=== PATIENT | female | born 1945 | race Caucasian/White ===

== ENCOUNTER → 2017-01-15 | Outpatient (CLI) | payer MEDICARE, BC, OTHER ==
[~2017-01-15] MED LIST: ASPIRIN E.C. 8181 MG PO; CLONAZEPAM0.125 MG PO; CLONAZEPAM1 MG PO; EXELON PAT4.6 MG/24 TD; EXELON4.5 MG TD; FLORINEF ACETA0.1 MG PO; LEVOTHYROXIN0.025 MG PO; LEXAPRO20 MG PO; MULTI VITAMINS1 TAB PO; NAPROXEN220 MG PO; POTASSIMIN75 MG PO; PRAVACHOL 40MG40 MG PO; Q10; SEROQUEL25 MG PO; SINEMET CR 50 M1 TER PO
== END ==
LOC: BHSO 11:19
DX: F33.1 Major depressive disorder, recurrent, moderate (principal)

== ENCOUNTER → 2017-04-16 | Outpatient (CLI) | payer MEDICARE, BC, OTHER | LOC: BHSO 11:23 | DX: F31.73 Bipolar disorder, in partial remission, most recent episode manic (principal) ==

== ENCOUNTER → 2017-08-20 | Outpatient (CLI) | payer MEDICARE, BC, OTHER | LOC: BHSO 11:18 | DX: F41.1 Generalized anxiety disorder (principal) ==

== ENCOUNTER 2017-12-31 16:52 | Observation (INO) | payer MEDICARE, BC ==
[~2017-12-31] VITALS: Ht 167.6 cm; Wt 63.8 kg
[~2017-12-31 16:52] MED LIST changes: +ALEVE 220MG220 MG PO; -NAPROXEN220 MG PO; -Q10; +Q10 PO; -SEROQUEL25 MG PO; +SEROQUEL50 MG PO
[2017-12-31 17:54] VITALS: BP 159/81; PULSE 69; TEMP 98.3
[2017-12-31] MEDS ORDERED: EXELON4.5 MG PO (18:03)
[2017-12-31] MEDS ORDERED: BRINTELLIX5 PO (18:22)
[2017-12-31 21:01] VITALS: BP 156/102; PULSE 90; TEMP 97.3
[2017-12-31 23:59] VITALS: BP 107/89; PULSE 63; TEMP 97.6
[2018-01-01] VITALS (10 sets, daily range): BP systolic 148–197; BP diastolic 76–110; PULSE 62–100; TEMP 97.5–97.9
[2018-01-01] MEDS ORDERED: SINEMET 25/101 UDTAB PO (03:24)
[2018-01-01] MEDS ORDERED: SYNTHROID0.05 MG/TA PO (03:26)
[2018-01-01] MEDS ORDERED: NAMENDA 10MG TA10 MG PO (03:27)
[2018-01-01] MEDS ORDERED: STOOL SOFTENER100 M2 PO (03:28)
[2018-01-01] MEDS ORDERED: LAMICTAL 100MG100 MG PO (03:30)
[2018-01-01] MEDS ORDERED: PRILOSEC 20MG20 MG PO (03:31)
[2018-01-01] MEDS ORDERED: REQUIP4 MG PO (03:37)
[2018-01-01] MEDS ORDERED: VITAMIN D 1001000 IU (03:38)
[2018-01-01] MEDS ORDERED: PROAMATINE 5MG T5 MG PO (03:40)
[2018-01-01] MEDS ORDERED: MASON NATURAL1200 MG PO (03:41)
[2018-01-01] MEDS ORDERED: KLONOPIN 0.5MG0.5 MG PO (03:44)
[2018-01-01] MEDS ORDERED: MELATONIN5 M1 PO (03:45)
[2018-01-01] MEDS ORDERED: PROBIOTIC FORMU1 CAP PO (03:48)
[2018-01-01] MEDS ORDERED: NITRO-BID22 (03:50)
[2018-01-01 06:53] LABS: CALCIUM 8.9 mg/dL (8.4-10.2); CREATININE, serum 0.77 mg/dL (0.52-1.25); POTASSIUM 3.1 mmol/L (3.4-5.0)
== END 2018-01-01 15:00 | disposition home or self-care (01) ==
LOC: SDCO 16:52 → MEDICAL 17:23 → SDCO 01-01 10:00 → MEDICAL 01-01 15:00
PROVIDERS: Physician Assistant
DX: R19.5 Other fecal abnormalities (principal); K57.30 Diverticulosis of large intestine without perforation or abscess without bleeding; G20 Parkinson's disease; F02.80 Dementia in other diseases classified elsewhere, unspecified severity, without behavioral disturbance, psychotic disturbance, mood disturbance, and anxiety; Z79.82 Long term (current) use of aspirin; F41.9 Anxiety disorder, unspecified; F32.9 Major depressive disorder, single episode, unspecified; E03.9 Hypothyroidism, unspecified; E87.6 Hypokalemia; Z88.8 Allergy status to other drugs, medicaments and biological substances
CPT/HCPCS: 99203; 99214; J2704; J7030

== ENCOUNTER → 2018-01-21 | Outpatient (CLI) | payer MEDICARE, BC ==
[~2018-01-21] MED LIST changes: +BRINTELLIX5 PO; +EXELON4.5 MG PO; +KLONOPIN 0.5MG0.5 MG PO; +LAMICTAL 100MG100 MG PO; +MASON NATURAL1200 MG PO; +MELATONIN5 M1 PO; +NAMENDA 10MG TA10 MG PO; +NITRO-BID22; +PRILOSEC 20MG20 MG PO; +PROAMATINE 5MG T5 MG PO; +PROBIOTIC FORMU1 CAP PO; +REQUIP4 MG PO; +SINEMET 25/101 UDTAB PO; +STOOL SOFTENER100 M2 PO; +SYNTHROID0.05 MG/TA PO; +VITAMIN D 1001000 IU
== END ==
LOC: MC.RAD 11:00
DX: Z12.31 Encounter for screening mammogram for malignant neoplasm of breast (principal)

== ENCOUNTER → 2018-02-04 | Outpatient (CLI) | payer MEDICARE, BC | LOC: BHSO 11:22 | DX: F06.32 Mood disorder due to known physiological condition with major depressive-like episode (principal) | CPT/HCPCS: G0463 ==

== ENCOUNTER → 2018-05-04 | Outpatient (CLI) | payer MEDICARE, BC | LOC: BHSO 11:19 | DX: F41.1 Generalized anxiety disorder (principal) ==

== ENCOUNTER → 2018-08-11 | Outpatient (CLI) | payer MEDICARE, BC | LOC: BHSO 11:42 | DX: F33.42 Major depressive disorder, recurrent, in full remission (principal) | CPT/HCPCS: G0463 ==

== ENCOUNTER → 2019-02-09 | Outpatient (CLI) | payer MEDICARE, BC | LOC: BHSO 11:42 | DX: F06.32 Mood disorder due to known physiological condition with major depressive-like episode (principal) | CPT/HCPCS: G0463 ==

== ENCOUNTER 2019-05-24 10:57 | Outpatient (CLI) | payer MEDICARE, BC ==
[~2019-05-24] VITALS: Ht 167.6 cm; Wt 54.0 kg
[2019-05-24 11:27] VITALS: BP 143/99; PULSE 67; TEMP 98.6
[2019-05-24] MEDS ORDERED: SINEMET 25/101 UDTAB PO (16:28)
[2019-05-24] MEDS ORDERED: SEROQUEL 2525 MG/TAB PO (16:33)
== END 2019-05-24 16:38 | disposition home or self-care (01) ==
LOC: EUO 10:57
DX: M81.0 Age-related osteoporosis without current pathological fracture (principal)
CPT/HCPCS: J0897

== ENCOUNTER → 2019-08-10 | Outpatient (CLI) | payer MEDICARE, BC ==
[~2019-08-10] MED LIST changes: +SEROQUEL 2525 MG/TAB PO
== END ==
LOC: BHSO 11:40
DX: F41.1 Generalized anxiety disorder (principal)
CPT/HCPCS: G0463

== ENCOUNTER 2020-01-05 16:46 | Inpatient (IN) | payer MEDICARE, BC ==
[~2020-01-05] VITALS: Ht 170.2 cm; Wt 58.2 kg
[~2020-01-05 16:46] MED LIST changes: +COENZYME Q-10200 M1 PO; -Q10 PO
--- NOTE | 2020-01-05 17:30 | NUR ---
Dr Connolly notified of admission.
[2020-01-05 19:40] VITALS: BP 165/89; PULSE 77; TEMP 97.9
[2020-01-05] MEDS ORDERED: KLONOPIN 0.5MG0.5 MG PO (19:46)
[2020-01-05 19:59] LABS: BASO % 0.4 % (0.0-2.0); EOS # 0.1 (0.0-0.7); EOS % 1.5 % (0-4.0); GRAN # 6.4 (1.4-6.5); GRAN % 76.2 % (42.2-75.2); HEMATOCRIT 38.5 % (37.0-47.0); HEMOGLOBIN 12.7 g/dl (12.5-16.0); LYMPH # 1.2 (1.2-3.4); LYMPH % 13.9 % (20.0-51.0); MEAN CELL VOLUME 99 fl (80.0-100.0); MEAN CORPUSCULAR HEMOGLOBIN 33 pg (27.0-31.0); MEAN CORPUSCULAR HGB CONC 33 g/dl (33.0-37.0); MEAN PLATELET VOLUME 9.5 fl (7.4-10.4); MONO # 0.7 (0.1-0.6); MONO % 7.8 % (1.7-9.3); PLATELET COUNT 207 K/mm3 (130-400); RED BLOOD COUNT 3.91 M/mm3 (4.10-5.30); REDCELL DISTRIBUTION WIDTH-CV 12.7 % (11.5-14.5)
[2020-01-05 20:09] LABS: CALCIUM 9.1 mg/dL (8.4-10.2); CREATININE, serum 0.6 (0.52-1.25); POTASSIUM 4.3 mmol/L (3.4-5.0)
[2020-01-05 23:01] VITALS: BP 157/48; PULSE 80; TEMP 98.5
[2020-01-06] VITALS (7 sets, daily range): BP systolic 75–162; BP diastolic 34–97; PULSE 65–81; TEMP 98.7–100.4
--- NOTE | 2020-01-06 02:21 | NUR ---
patient doing well tonight. alert but not oriented. unstagable pressure ulcer to coccyx, stage 2 pressure ulcer to coccyx, both covered with mepoplex dressing. IV started to R FA. IVF and ABX infusing without issue. has been incontinent several times, and cleaned and changed with x2 assist. took scheduled medications with applesauce and help of . resting comfortably in bed. will continue to monitor.
--- NOTE | 2020-01-06 08:00 | NUR ---
Patient in bed resting. Patient is nonverbal. Assisted patient to repostion. Assessment complete Ulcer to coccyx with mepilex in place, purulent drainage noted. Fluids infusing per orders. Assisted patient to eat and with medications this AM. Will continue to monitor.
--- NOTE | 2020-01-06 09:00 | NUR ---
Patient spouse at bedside.
--- NOTE | 2020-01-06 11:12 | NUR ---
Initial visit; Patient thanked Relationship Associate for looking in on her and offering God's blessings.
--- NOTE | 2020-01-06 12:00 | NUR ---
Dr. Jauregui in to see patient. Patient incontinent of urine, pericare provided.
--- NOTE | 2020-01-06 17:14 | NUR ---
Care Nurse Rn met with patient and patient's Kehinde (ph#[phone]) to discuss discharge planning. Patient is non verbal so intake was completed with . Patient lives in [place] with her Kehinde who provides her with organizational consultant care. Patient requires assistance with all ADLS and transfers. Patient uses a wheelchair for mobility. Patient has 30 hours a week of in home supports provided by [facility]. Patient's primary care physician is Dr. Muñoz and her medications are delivered to her home by [facility]. Patient's reports patient is doing well at home and he feels the support they receive from [facility] is meeting their needs. Plan is for patient to return home upon discharge with continued in home supports. SW faxed updates to [facility] and will continue to follow as needed.
--- NOTE | 2020-01-06 18:36 | NUR ---
Patient has done well throughout the day. Turn approximately every 2 hours. Assisted patient to eat meals. Takes pills whole in applesauce. Reported off to warehouse shift supervisor.
[2020-01-07] VITALS (13 sets, daily range): BP systolic 127–184; BP diastolic 61–96; PULSE 66–86; TEMP 97.7–99
[2020-01-07 06:20] LABS: BASO % 0.7 % (0.0-2.0); EOS # 0.2 (0.0-0.7); EOS % 2.8 % (0-4.0); HEMATOCRIT 37.1 % (37.0-47.0); HEMOGLOBIN 12.4 g/dl (12.5-16.0); LYMPH # 1.3 (1.2-3.4); LYMPH % 21.8 % (20.0-51.0); MEAN CELL VOLUME 97 fl (80.0-100.0); MEAN CORPUSCULAR HEMOGLOBIN 33 pg (27.0-31.0); MEAN CORPUSCULAR HGB CONC 33 g/dl (33.0-37.0); MEAN PLATELET VOLUME 9.4 fl (7.4-10.4); MONO # 0.6 (0.1-0.6); MONO % 9.2 % (1.7-9.3); PLATELET COUNT 238 K/mm3 (130-400); RED BLOOD COUNT 3.82 M/mm3 (4.10-5.30); REDCELL DISTRIBUTION WIDTH-CV 12.7 % (11.5-14.5)
[2020-01-07 06:29] LABS: CALCIUM 8.2 mg/dL (8.4-10.2); CREATININE, serum 0.63 (0.52-1.25); INR 1.1 (0.8-3.0); POTASSIUM 3.4 mmol/L (3.4-5.0); PROTHROMBIN TIME 12.8 SECONDS (9.7-12.8)
--- NOTE | 2020-01-07 08:00 | NUR ---
Patient in bed resting. Repostioned for comfort at this time. Dressing to coccyx appears CDI. Will continue to monitor.
--- NOTE | 2020-01-07 09:30 | NUR ---
IV to right forarm began leaking after antibiotic, restarted iv to right forarm x 2 attempts. Patient down for procedure.
--- NOTE | 2020-01-07 10:38 | NUR ---
Patient was indisposed.
--- NOTE | 2020-01-07 16:55 | NUR ---
awake resting in bed, bedside shift report received from MARIAM Le
--- NOTE | 2020-01-07 17:02 | NUR ---
Patient has done well throughout the day. Repositioned and pericare provided throughout the day. Family assisting with meals today. Reported off to Odette BECERRA.
--- NOTE | 2020-01-07 17:28 | NUR ---
sitting up in bed and is assisting her with eating supper, will call if needs assistance
--- NOTE | 2020-01-07 18:27 | NUR ---
repositioned onto right side, was incontinent of large amount of urine and incontinent care provided, ABD to cocyx was also wet and changed at this time, remains at bedside
--- NOTE | 2020-01-07 18:51 | NUR ---
bedside shift report given to MARIAM Johnson
[2020-01-08 04:55] VITALS: BP 176/76; PULSE 73; TEMP 98.7
--- NOTE | 2020-01-08 06:15 | NUR ---
Patient has been sleeping most the night. She appeared to be resting comfortably. She was incontinent of urine twice. Turned Q2h from side to side. Changed dressing to coccyx this morning. Scant amount of drainage from incision to ABD that was removed. No other changes at this time. Call light within reach.
[2020-01-08 07:58] VITALS: BP 198/90
--- NOTE | 2020-01-08 09:45 | NUR ---
Patient alert, non verbal. See assessment. Wound to coccyx dressing changed. Scant amount of bloody drainage noted. Wound bed pink. Area around wound pink and blanchable. No s/s pain or discomfort noted.
[2020-01-08 12:36] VITALS: BP 179/78; PULSE 72; TEMP 98.4
[2020-01-08 16:42] VITALS: BP 154/76; PULSE 74; TEMP 99.2
[2020-01-08 19:51] VITALS: BP 112/94; PULSE 87; TEMP 98.9
--- NOTE | 2020-01-08 20:00 | NUR ---
Pt. laying in bed at this time. Pt. arousable to touch, shift assessment complete. INT to rt. forearm patent. Dressing to coccyx CDI. Pt. repositioned for comfort.
[2020-01-09 00:27] VITALS: BP 153/78; PULSE 71; TEMP 99.2
[2020-01-09 03:32] VITALS: BP 155/65; PULSE 66; TEMP 98.6
--- NOTE | 2020-01-09 07:15 | NUR ---
No Ayaz here to see patient.
[2020-01-09 07:48] VITALS: BP 187/86; PULSE 80; TEMP 98.3
[2020-01-09 08:26] LABS: CALCIUM 8.6 mg/dL (8.4-10.2); CREATININE, serum 0.65 (0.52-1.25); POTASSIUM 3.4 mmol/L (3.4-5.0)
--- NOTE | 2020-01-09 08:45 | NUR ---
Patient alert, no verbal response noted. Coccyx wound with wound bed pink, packing changed, scant amount of drainage noted. No s/s pain or discomfort noted.
--- NOTE | 2020-01-09 09:30 | NUR ---
Patient alert, confused. RLE with incision CDI, no redness or drainage noted. Pulses palpable to RLE, neuros intact. FWB. No c/o at this time.
[2020-01-09] MEDS ORDERED: SINEMET 25/101 UDTAB PO (11:18)
[2020-01-09 12:36] VITALS: BP 154/67; PULSE 79; TEMP 99.3
[2020-01-09 17:00] VITALS: BP 135/68; PULSE 94; TEMP 99.6
[2020-01-09 20:18] VITALS: BP 153/84; PULSE 82; TEMP 99.8
--- NOTE | 2020-01-09 21:00 | NUR ---
PT TAKES HS MEDS CRUSHED IN PUDDING, TAKES WITHOUT CHOKING OR DIFFICULTY. DOES CHEW HER FISHOIL AND COLACE. SPOUSE AT BEDSIDE. TAKES WATER WITHOUT CHOKING. HAS RIGHT FOREARM SL WITHOUT REDNESS OR SWELLING. INCONTINENT OF URINE. HAS DRSG TO COCCYX INTACT. PT CONVERSATION IS CONFUSED, PLEASANT. REQUIRES Q2HR TURNS WITH ASSIST.
--- NOTE | 2020-01-10 00:44 | NUR ---
REPACKED WOUND TO COCCYX WITH GAUZE. MINIMAL DRAINAGE ON COVERING. PT ALSO INC OF MOD FORMED STOOL AT THIS TIME AND LARGE INC VOID.
[2020-01-10 00:50] VITALS: BP 160/71; PULSE 85; TEMP 99.2
--- NOTE | 2020-01-10 03:00 | NUR ---
Repositioned to right side. IV Flagyl infusing to right forearm IV site without problem.
[2020-01-10 04:08] VITALS: BP 150/93; PULSE 76; TEMP 98.5
--- NOTE | 2020-01-10 04:30 | NUR ---
Repositioned by staff, inc of urine only at this time.
--- NOTE | 2020-01-10 05:30 | NUR ---
Takes AM med crushed in pudding without problem.
[2020-01-10 07:35] VITALS: BP 166/91; PULSE 83; TEMP 98.5
[2020-01-10 08:07] LABS: CALCIUM 8.9 mg/dL (8.4-10.2); CREATININE, serum 0.62 (0.52-1.25); POTASSIUM 3.3 mmol/L (3.4-5.0)
[2020-01-10 08:27] LABS: BASO # 0.1 (0.0-0.2); BASO % 0.6 % (0.0-2.0); EOS # 0.1 (0.0-0.7); EOS % 1.8 % (0-4.0); GRAN # 5.3 (1.4-6.5); HEMATOCRIT 39.7 % (37.0-47.0); HEMOGLOBIN 13.2 g/dl (12.5-16.0); LYMPH # 1.6 (1.2-3.4); LYMPH % 20.7 % (20.0-51.0); MEAN CELL VOLUME 98 fl (80.0-100.0); MEAN CORPUSCULAR HEMOGLOBIN 33 pg (27.0-31.0); MEAN CORPUSCULAR HGB CONC 33 g/dl (33.0-37.0); MEAN PLATELET VOLUME 9.9 fl (7.4-10.4); MONO # 0.7 (0.1-0.6); MONO % 9.4 % (1.7-9.3); PLATELET COUNT 271 K/mm3 (130-400); RED BLOOD COUNT 4.05 M/mm3 (4.10-5.30); REDCELL DISTRIBUTION WIDTH-CV 12.8 % (11.5-14.5)
[2020-01-10 11:23] VITALS: BP 144/85; PULSE 76; TEMP 99.5
--- NOTE | 2020-01-10 11:59 | NUR ---
First visit from the vegetable specker. No needs right now.
[2020-01-10 15:35] VITALS: BP 160/85; PULSE 87; TEMP 99.2
--- NOTE | 2020-01-10 16:27 | NUR ---
YANNICK met with the patient's , Kehinde, to review discharge plan and to discuss PT's recommendation of SNF. The patient's reports that he would like to see how the patient does again with transfers this evening with her RN and if he able to assist. He states that if he is not able to assist the patient, then he would be interested in SNF. The patient's was agreeable to send referrals to SNF, if the transfers do not go well. YANNICK presented and explained the Patient Choice Form and provided him with Medicare.gov's list of SNFs in the [facility]. The patient's chose 1) [facility] 2) [facility]. Patient Choice Form signed by the patient's and he was provided a copy. YANNICK contacted and faxed a referral to both facilities. SW awaiting their screens. The patient is to tentatively discharge tomorrow, 01/10. YANNICK attempted to notify Chencho at [facility] to update. YANNICK left her a voicemail and will continue to follow.
--- NOTE | 2020-01-10 19:50 | NUR ---
Patient has done well throughout the day. Repositioned x 2 assist. IV restarted this afternoon, x 1 attempt. Patient has a large loose BM this AM, held stool softners. Bed bath completed today. Patient has been incontinent of urine throughout the day, pericare provided. Taking medications crushed in applesauce. Dressing to coccyx changed after BM, gauze with saline, mepilex over. Spouse at bedside throughout the day. Reported off to night time nanny.
[2020-01-10 20:23] VITALS: BP 168/79; PULSE 71; TEMP 97.4
--- NOTE | 2020-01-10 21:00 | NUR ---
Pt. laying in bed with at bedside. Pt. is A&OX3, assessment complete. INT to rt forearm patent. Dressing to coccyx cdi. Pt.'s denies further needs.
[2020-01-11 04:16] VITALS: BP 169/80; PULSE 78; TEMP 98.6
[2020-01-11 09:16] VITALS: BP 166/89; PULSE 89; TEMP 98.7
--- NOTE | 2020-01-11 11:17 | NUR ---
Edilson, at [facility], reports that they are able to accept the patient for a skilled stay. SW to inform the patient's and will continue to follow.
[2020-01-11 11:49] LABS: CALCIUM 9.1 mg/dL (8.4-10.2); CREATININE, serum 0.7 (0.52-1.25); POTASSIUM 3.8 mmol/L (3.4-5.0)
[2020-01-11 12:10] VITALS: BP 175/78; PULSE 78; TEMP 99.6
[2020-01-11] MEDS ORDERED: MIRALAX510G PO (12:10)
[2020-01-11] MEDS ORDERED: AMOXICILLIN 8751 TAB PO (12:12)
[2020-01-11] MEDS ORDERED: KLONOPIN 0.5MG0.5 MG PO ×2 (12:13)
--- NOTE | 2020-01-11 14:14 | NUR ---
Chichi, at [facility], reports that they would not be able to skill the patient. YANNICK met with the patient's , Kehinde, to update on referrals and to follow up on preference for SNF vs home. Kehinde reports that he would like to pursue with SNF at [facility] [place]. YANNICK updated Edilson at [facility] and the clinical team and will update [facility]. The patient is to discharge today, 01/10, to [facility] [place] for a skilled stay. Transportation was scheduled at 1500, via AV. YANNICK informed the patient's and RN. They were both in agreeance to the time. YANNICK also presented and explained the IM form to the patient's . The patient's verbalized understanding, signed, and he was provided a copy. No additional needs at this time.
[2020-01-11 14:19] VITALS: BP 175/78; PULSE 78; TEMP 99.6
--- NOTE | 2020-01-11 14:20 | NUR ---
Contacted Lucina FLOREZ about patient BP, aware, no new changes.
--- NOTE | 2020-01-11 16:06 | NUR ---
Patient has done well throughout the day. Repostioned every 2 hours. Incontinent of urine and bowel, pericare provided. INT to left hand discontinued, catheter tip intact. Patient discharging to [facility], patient transfered by sally lift to wheelchair. Spouse at bedside throughout the day. Report called to Sultana BECERRA. Denies further needs at this time.
== END 2020-01-11 15:50 | disposition home or self-care (01) | DRG 572 ==
LOC: MEDICAL 16:46 → SURG 17:05
PROVIDERS: Physician Assistant; Surgery
PROC: 0JB70ZZ Excision of Back Subcutaneous Tissue and Fascia, Open Approach (ICD-10-PCS; principal; 2020-01-07 12:00)
DX: L89.150 Pressure ulcer of sacral region, unstageable (principal); G20 Parkinson's disease; F02.80 Dementia in other diseases classified elsewhere, unspecified severity, without behavioral disturbance, psychotic disturbance, mood disturbance, and anxiety; E03.9 Hypothyroidism, unspecified; I95.1 Orthostatic hypotension; F32.9 Major depressive disorder, single episode, unspecified; E87.6 Hypokalemia; D64.9 Anemia, unspecified; Z79.82 Long term (current) use of aspirin; Z86.73 Personal history of transient ischemic attack (TIA), and cerebral infarction without residual deficits
CPT/HCPCS: 99222-AI; 99231-AI; 99232-AI; 99239; A9585; J0696; J1644; J2704; J3010; J3370; J7042; J7050